=== PATIENT | female | born 1970 | race Caucasian/White ===

== ENCOUNTER 2017-04-03 21:52 | Emergency (ER) | payer BC ==
[~2017-04-03] VITALS: Ht 167.6 cm; Wt 75.0 kg
[2017-04-03 23:03] LABS: HEMATOCRIT 41.8 % (36.0-46.0); MCH 30.8 PG (29.0-34.0); MCHC 33.3 G/DL (30.0-36.0); MCV 92.5 FL (83-99); MEAN PLAT.VOLUME 10.2 uM^3 (9.5-12.4); PLATELET COUNT 218 K/uL (156-360); RBC DIS.WIDTH-CV 12.1 % (11.8-14.6); RBC DIS.WIDTH-SD 41.1 % (39-53); RED BLOOD COUNT 4.52 M/uL (3.80-5.20); WHITE BLOOD COUNT 8.2 K/uL (4.1-10.2)
[2017-04-03 23:32] LABS: ALKALINE PHOSPHATASE 63 IU/L (3-129); ANION GAP 9 MEQ/L (2-14); CHLORIDE 106 MEQ/L (99-109); GFR ESTIMATE (CALCULATED) > 59 mL/min/; GLUCOSE 98 mg/dL (70-99); LIPASE 15 U/L (1.0-51.0); POTASSIUM 3.9 MEQ/L (3.7-5.4); SAMPLE HEMOLYSIS CHECK 0; SAMPLE ICTERIC CHECK 0; SAMPLE LIPEMIA CHECK 0; SODIUM 140 MEQ/L (136-147); TOTAL BILIRUBIN 0.5 MG/DL (0.0-1.0); UREA NITROGEN (BUN) 18 mg/dL (9-23)
[2017-04-03 23:36] LABS: TROP-I INTERPRETATION NEGATIVE; TROPONIN-I < 0.01 ng/mL (0.0-0.30)
[2017-04-03 23:39] LABS: ADD MIUA? NO; BILIRUBIN NEGATIVE; BLOOD NEGATIVE; COLOR STRAW ((YELLOW)); GLUCOSE (STRIP) NEGATIVE; KETONES NEGATIVE; LEUKOCYTES NEGATIVE; NITRITE NEGATIVE; PROTEIN (STRIP) NEGATIVE; SPECIFIC GRAVITY 1.008 (1.000-1.030); UROBILINOGEN 0.2 MG/DL (0.2-1.0)
[2017-04-03 23:57] LABS: QUANTITATIVE HCG < 4.0 MIU/ML
[2017-04-04] MEDS ORDERED: NEXIUM40 MG PO (00:57)
[2017-04-04 01:07] VITALS: BP 153/93
== END 2017-04-04 01:09 | disposition home or self-care (01) ==
LOC: RME 21:52 → EME 21:52 → RME 04-04 01:09
PROVIDERS: Nurse Practitioner Family
DX: K21.9 Gastro-esophageal reflux disease without esophagitis (principal); Z88.0 Allergy status to penicillin; Z88.6 Allergy status to analgesic agent
CPT/HCPCS: 74177; 80053; 81003; 83690; 84484; 84702; 85027; 93005; 99281; 99285; J7030

== ENCOUNTER 2017-12-31 21:03 | Emergency (ER) | payer BC ==
[~2017-12-31] VITALS: Ht 167.6 cm; Wt 75.8 kg
[~2017-12-31 21:03] MED LIST: NEXIUM40 MG PO
[2017-12-31] MEDS ORDERED: DOXYCYCLINE HY100 MG PO (23:15)
[2018-01-01 00:09] VITALS: BP 163/96
== END 2018-01-01 00:09 | disposition home or self-care (01) ==
LOC: EME 21:03
PROC: 3E0234Z Introduction of Serum, Toxoid and Vaccine into Muscle, Percutaneous Approach (ICD-10-PCS; principal; 2017-12-31)
DX: S61.452A Open bite of left hand, initial encounter (principal); W55.01XA Bitten by cat, initial encounter; Z20.3 Contact with and (suspected) exposure to rabies; Z29.14 Encounter for prophylactic rabies immune globulin; Z88.0 Allergy status to penicillin
CPT/HCPCS: 99281; 99284

== ENCOUNTER 2018-01-02 10:37 | Emergency (ER) | payer BC ==
[~2018-01-02] VITALS: Ht 167.6 cm; Wt 75.0 kg
[~2018-01-02 10:37] MED LIST changes: +DOXYCYCLINE HY100 MG PO
[2018-01-02 12:35] VITALS: BP 147/94
== END 2018-01-02 12:36 | disposition home or self-care (01) ==
LOC: EME 10:37
PROC: 3E0234Z Introduction of Serum, Toxoid and Vaccine into Muscle, Percutaneous Approach (ICD-10-PCS; principal; 2018-01-02)
DX: Z20.3 Contact with and (suspected) exposure to rabies (principal); S61.432D Puncture wound without foreign body of left hand, subsequent encounter; W55.01XD Bitten by cat, subsequent encounter; Z23 Encounter for immunization; Z88.0 Allergy status to penicillin; Z88.6 Allergy status to analgesic agent; Z88.8 Allergy status to other drugs, medicaments and biological substances
CPT/HCPCS: 99281; 99283